=== PATIENT | male | born 1955 | race Two or more races ===

== ENCOUNTER 2023-02-15 15:15 | Emergency (ER) | payer OTHER, SELFPAY ==
--- NOTE | ~2023-02-15 | XR_ITS ---
EXAMINATION: XR FOOT, RIGHT CLINICAL INFORMATION: Open wound. COMPARISON: None available. TECHNIQUE: AP, lateral, and oblique views of the right foot. 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 There is soft tissue gas seen along the amputated end of right foot likely inflammation but no air-fluid levels seen to suspect any abscess. No bony erosive changes along the amputation sites to suspect osteomyelitis. The ankle mortise and subtalar joints are normal. There is a small to moderate size calcaneal spur. XR/XR foot RT min 3V IMPRESSION: 1. Soft tissue gas along the amputated end of right foot likely inflammation but no air-fluid level seen to suspect any abscess or or bony erosive changes to suspect osteomyelitis. 2. 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
[2023-02-15 15:25] VITALS: PULSE 105
--- NOTE | 2023-02-15 15:31 | ECG_ITS ---
Test Reason : MED CLEARANCE Blood Pressure : / mmHG Vent. Rate : 092 BPM Atrial Rate : 092 BPM P-R Int : 146 ms QRS Dur : 084 ms QT Int : 350 ms P-R-T Axes : 071 010 054 degrees QTc Int : 432 ms Normal sinus rhythm Normal ECG No previous ECGs available Referred By: Dianne Menjivar Electronically Signed By:ALEKS REHMAN MD
--- NOTE | 2023-02-15 15:31 | ED.GENADULT ---
HPI - General Adult General Chief complaint: Psychiatric Symptoms Stated complaint: ANXIETY, Time Seen by Provider: 02/15/23 15:24 Source: patient, EMS and senior architect Mode of arrival: EMS Limitations: language barrier History of Present Illness HPI narrative: Patient is a 67 year old assigned male at with a history of anxiety presenting to the emergency department today with increased anxiety. Patient states that he is feeling much more anxious and usually gets medications to help with it. Patient states that he has lost all of his toes from diabetes. Patient states that he has had a chronic wound on his right foot stub for 4 years. Patient denies any thoughts of hurting himself or hurting anyone else, dizziness, lightheadedness, abdominal pain, nausea, vomiting, fever, chills, blurry vision, double vision, loss of vision, chest pain, difficulty breathing, shortness of breath, back pain, night sweats, pain with urination, increased urinary frequency, increased urinary urgency, blood in his urine or stool, syncope or a near syncopal episode, recent trauma or falls, bowel incontinence, bladder incontinence, bowel retention, bladder retention, or any other complaints at this time. Onset (ago): day(s) Relieving factors: none Exacerbating factors: none Associated symptoms: denies other symptoms Treatments prior to arrival: none Related Data Home Medications Medication Instructions Recorded Confirmed aripiprazole 15 mg tablet 15 mg PO DAILY 02/15/23 02/15/23 atorvastatin 20 mg tablet 20 mg PO DAILY 02/15/23 02/15/23 dulaglutide 1.5 mg/0.5 mL 1.5 mg subcut QWEEK 02/15/23 02/15/23 subcutaneous pen injector (Trulicity) duloxetine 30 mg capsule,delayed 90 mg PO DAILY 02/15/23 02/15/23 release gabapentin 600 mg tablet 600 mg PO TID 02/15/23 02/15/23 levothyroxine 75 mcg tablet 75 mcg PO DAILY 02/15/23 02/15/23 lisinopril 10 mg tablet 10 mg PO DAILY 02/15/23 02/15/23 quetiapine 50 mg tablet 50 mg PO BEDTIME 02/15/23 02/15/23 tamsulosin 0.4 mg capsule 0.4 mg PO DAILY 02/15/23 02/15/23 trazodone 150 mg tablet 150 mg PO BEDTIME 02/15/23 02/15/23 cyanocobalamin (vitamin B-12) 1,000 mcg PO DAILY 02/16/23 02/16/23 1,000 mcg tablet (Vitamin B-12) insulin glargine 100 unit/mL (3 35 unit subcut BEDTIME 02/16/23 02/16/23 mL) subcutaneous pen (Lantus Solostar U-100 Insulin) Allergies Allergy/AdvReac Type Severity Reaction Status Date / Time No Known Allergies Allergy Verified 02/15/23 15:41 Review of Systems Constitutional: Constitutional: Reports no additional constitutional complaints, Denies chills, Denies fever(s) and Denies night sweats Eyes: Eyes: Reports no additional eye complaints, Denies blurry vision, Denies change in vision, Denies diplopia, Denies eye discharge, Denies loss of vision and Denies eye pain ENT: Denies dizziness Cardiovascular: Cardiovascular: Reports no additional cardiovascular complaints, Denies chest pain, Denies lightheadedness, Denies Loss of Consciousness and Denies dyspnea Respiratory: Respiratory: Reports no additional respiratory complaints and Denies dyspnea Gastrointestinal: Gastrointestinal: Reports no additional gastrointestinal complaints, Denies abdominal pain, Denies melena, Denies hematochezia, Denies change in bowel habits and Denies change in stool character Genitourinary: Genitourinary: Reports no additional male genitourinary complaints, Denies hematuria, Denies oliguria, Denies difficulty urinating, Denies dysuria, Denies urinary frequency, Denies urinary hesitancy, Denies urinary incontinence and Denies urinary urgency Musculoskeletal: Musculoskeletal: Reports no additional musculoskeletal complaints, Denies numbness and Denies tingling Comments: chronic wound to the right foot stub, both feet missing all toes Neurologic: Denies dizziness, Denies loss of vision, Denies numbness and Denies tingling Psychiatric: Psychiatric: Reports no additional psychiatric complaints, Reports anxiety, Denies homicidal ideation and Denies suicidal ideation Endocrine: Endocrine: Reports no additional endocrine complaints Hematologic/Lymphatic: Hematologic/Lymphatic: Reports no additional hematologic/lymphatic complaints Allergic/Immunologic: Allergic/Immunologic: Reports no additional allergic/immunologic complaints PMFSH Past Medical History Attestation statement: The following information was validated with the patient. Source: old records reviewed and nursing notes reviewed Social History Alcohol intake: current Smoked in Last 30 Days: Yes Use of substances other than those prescribed or required for medical reasons: Yes Advance Directives: No Advance Directives Information Provided: No Healthcare Proxy: No Guardian: No Physical Exam ED Vital Signs: Vital Signs - 24 hr 02/16/23 14:44 02/17/23 03:42 Temperature 97.9 F Pulse Rate 78 122 H Respiratory Rate 16 18 Blood Pressure 136/65 128/81 Pulse Oximetry 95 98 Oxygen Delivery Method Room Air Room Air BMI result Body Mass Index 28.9 Const General: cooperative, no acute distress, alert and awake Nutritional Appearance: well nourished Orientation/consciousness: patient oriented x3 Limitations: no limitations HENMT Head: Yes normal to inspection and Yes atraumatic Ears: hearing grossly normal bilaterally and external ears normal General nose exam: Normal external nose present, no nasal discharge noted and no epistaxis Face and sinus: Yes normal facial exam, No abrasion and No laceration Mouth: Normal oral and palatal mucosa present, no drooling and no muffled voice Eyes General: appearance normal, both eyes and all related structures Periorbital: periorbital findings normal Eyelids: Yes eyelids normal Conjunctivae: conjunctivae normal Pupils: Equal, round and reactive pupils present EOM: EOMs intact bilaterally Neck Neck: Yes normal visual inspection, Yes full ROM and Yes no lymphadenopathy Chest Chest palpation & inspection: normal inspection of the chest Resp Effort & Inspection: normal respiratory effort and able to speak in complete sentences GI Inspection: Yes normal to inspection Neuro General: patient oriented x3 and moves all extremities Cranial nerves: Yes Equal, round and reactive pupils present Cognition (Neuro): normal cognition Motor exam (neuro): 5/5 motor strength present throughout Sensory Exam: Normal double simultaneous stimulation for sensation Coordination: [id number] test normal Extrem Other: chronic wound to the right foot stub, all toes missing bilaterally secondary to diabetes General: Yes full ROM Psych Appearance: grossly normal Mental Status: mental status grossly normal Affect: Labile affect present and Animated affect present Attitude: cooperative Thought process: Circumstantial thought process present Course Reevaluation(s) Reevaluation #1: Review of serum labs, no leukocytosis or left shift. ESR 38 and CRP of 1.19. XR of the foot revealing:; XR/XR foot RT min 3V IMPRESSION: 1. Soft tissue gas along the amputated end of right foot likely inflammation but no air-fluid level seen to suspect any abscess or or bony erosive changes to suspect osteomyelitis. 2. 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 Upon examination wound bed has callus tingling any lesion tissue, no purulence. Wound has been present for the past 4 years by his account. He is afebrile. Lower suspicion for osteomyelitis at this time, reviewed this case with ED attending Dr. Posada who agrees. Will cover with doxycycline and keflex, he should have wound clinic follow-up. Placed in physician observation pending care team evaluation Reevaluation #2: Physician observation continued. VS stable, continue oral cephalexin and doxy. CARE team to dispo today most likely Reevaluation #3: Physician observation continued. CARE team follow up. No acute events overnight. Pending [facility] and CARE team input. Medications Administered Generic Name Dose Route Start Last Admin Trade Name Freq PRN Reason Stop Dose Admin Aripiprazole 15 mg 02/16/23 09:00 02/16/23 08:39 Aripiprazole 15 Mg Tablet PO 15 mg DAILY ROSS Administration Atorvastatin Calcium 20 mg 02/16/23 09:00 02/16/23 08:40 Atorvastatin Calcium 20 Mg Tablet PO 20 mg DAILY ROSS Administration Cephalexin HCl 500 mg 02/15/23 22:45 02/16/23 20:26 Cephalexin 500 Mg Capsule PO 02/22/23 22:44 500 mg QID ROSS Administration Cyanocobalamin 1,000 mcg 02/16/23 09:30 02/16/23 10:34 Cyanocobalamin (Vitamin B-12) 1,000 Mcg Tablet PO 1,000 mcg DAILY ROSS Administration Doxycycline Monohydrate 100 mg 02/15/23 22:45 02/16/23 20:27 Doxycycline Monohydrate 100 Mg Capsule PO 02/22/23 09:01 100 mg BID ROSS Administration Duloxetine HCl 90 mg 02/16/23 09:00 02/16/23 08:39 Duloxetine Hcl 30 Mg Capsule. PO 90 mg DAILY ROSS Administration Gabapentin 600 mg 02/16/23 09:00 02/16/23 20:26 Gabapentin 600 Mg Tablet PO 600 mg TID ROSS Administration Insulin Glargine 35 unit 02/16/23 21:00 02/16/23 20:25 Insulin Glargine,Hum.Rec.Anlog 100 Unit/Ml 10 Ml Vial SUBCUT 35 unit BEDTIME ROSS Administration Levothyroxine Sodium 75 mcg 02/16/23 09:00 02/17/23 05:25 Levothyroxine Sodium 75 Mcg Tablet PO 75 mcg DAILY@0600 ROSS Administration Lisinopril 10 mg 02/16/23 09:00 02/16/23 08:39 Lisinopril 10 Mg Tablet PO 10 mg DAILY ROSS Administration Protocol Quetiapine Fumarate 50 mg 02/16/23 21:00 02/16/23 20:26 Quetiapine Fumarate 50 Mg Tablet PO 50 mg BEDTIME ROSS Administration Tamsulosin HCl 0.4 mg 02/16/23 09:00 02/16/23 08:40 Tamsulosin Hcl 0.4 Mg Capsule PO 0.4 mg DAILY ROSS Administration Trazodone HCl 150 mg 02/16/23 21:00 02/16/23 20:25 Trazodone Hcl 50 Mg Tablet PO 150 mg BEDTIME ROSS Administration Discontinued Medications Generic Name Dose Route Start Last Admin Trade Name Freq PRN Reason Stop Dose Admin Hydroxyzine HCl 50 mg 02/16/23 08:09 02/16/23 08:17 Hydroxyzine Hcl 50 Mg Tablet PO 02/16/23 08:10 50 mg ONCE ONE Administration Lorazepam 2 mg 02/15/23 15:31 02/15/23 15:41 Lorazepam 1 Mg Tablet PO 02/15/23 15:32 2 mg ONCE ONE Administration Medical Decision Making Medical Decision Making MDM Narrative: Patient is a 67 year old assigned male at with a history of diabetes and anxiety presenting to the emergency department today with increased anxiety. Patient's physical exam was as noted in the physical exam portion of this note. Labs ordered. XR of the right foot ordered. Ativan ordered. Patient's disposition will be determined by his work up and CARE team evaluation. Patient signed out to evening FAVIOLA. Differential Diagnosis Differential Diagnoses: The differential diagnosis associated with the presentation includes Cellulitis Anxiety Admission/Observation Consideration of admission/observation: Escalation of care including admission/observation considered Admission decision will be made after work up is complete and patient is evaluated by the CARE team. Lab Data 02/15/23 15:56 02/15/23 15:56 Labs: Lab Results 02/15/23 02/15/23 02/15/23 Range/Units 15:55 15:56 19:06 WBC 5.9 (4.8-10.8) X10*3/uL RBC 4.15 L (4.60-5.80) X10*6/uL Hgb 10.5 L (14.0-18.0) g/dl Hct 33.8 L (42.0-52.0) % MCV 81.4 (80.0-98.0) fL MCH 25.3 L (27.0-33.0) pg MCHC 31.1 (31.0-36.0) g/dl RDW 15.9 (11.0-16.0) % Plt Count 300 (160-400) X10*3/uL MPV 8.8 L (9.4-12.4) fL Immature Gran % (Auto) 0.3 (0.0-0.4) % Neut % (Auto) 62.6 (45-73) % Lymph % (Auto) 23.6 (20-40) % [place] % (Auto) 9.0 (2-11) % Eos % (Auto) 3.7 (0-4) % Baso % (Auto) 0.8 (0-2) % Lymph # (Auto) 1.4 (1.2-4.9) X10*3/uL [place] # (Auto) 0.5 (0.1-1.2) X10*3/uL Eos # (Auto) 0.2 (0.0-0.4) X10*3/uL Baso # (Auto) 0.1 (0.0-0.2) X10*3/uL Abs Immat Gran (auto) 0.02 (0.00-0.03) X10*3/uL Absolute Neuts (auto) 3.7 (2.0-8.3) x10*3/uL Absolute Nucleated RBC 0.000 (0.0-0.012) X10*3/uL Nucleated RBC % (auto) 0.0 (0.0-0.2) /100WBC ESR 38 H (0-15) MM/HR Sodium 141 (135-145) mmol/L Potassium 4.4 (3.3-5.1) mmol/L Chloride 105 (96-108) mmol/L Carbon Dioxide 28 (22-29) mmol/L Anion Gap 12 (12-20) BUN 12 (9-16) mg/dL Creatinine 1.29 (0.5-1.4) mg/dL Estim Creat Clear Calc 59.3 Estimated GFR 56 POC Glucose 196 H (60-115) mg/dL Random Glucose 193 H (60-115) mg/dL Calcium 9.6 (8.4-10.2) mg/dL Total Bilirubin 0.2 (0.0-1.0) mg/dL AST 20 (5-37) U/L ALT 17 (0-40) U/L Alkaline Phosphatase 135 H (39-117) U/L C-Reactive Protein 1.19 H (< or = 0.50) mg/dL Total Protein 7.1 (6.5-8.0) g/dL Albumin 3.6 (3.5-5.0) g/dL Urine Color Urine Appearance Urine pH (5.0-9.0) Ur Specific [place] (1.005-1.025) Urine Protein (Neg-Trace) mg/dL Urine Glucose (UA) (Negative) mg/dL Urine Ketones (Negative) mg/dL Urine Blood (Negative) Urine Nitrite (Negative) Ur Leukocyte Esterase (Negative) Salicylates < 5.0 L (15-30) mg/dL Urine Opiates Screen (Not Detect) Urine Fentanyl Screen (Not Detect) Acetaminophen < 3 (<30) mcg/mL Ur Barbiturates Screen (Not Detect) Ur Phencyclidine Scrn (Not Detect) Ur Amphetamines Screen (Not Detect) U Benzodiazepines Scrn (Not Detect) Urine Cocaine Screen (Not Detect) U Marijuana (THC) Screen (Not Detect) Ethyl Alcohol < 10 mg/dL COVID-19 (JILL) Negative (Negative) COVID-19 Clin Com See Note 02/16/23 02/16/23 Range/Units 03:00 19:59 WBC (4.8-10.8) X10*3/uL RBC (4.60-5.80) X10*6/uL Hgb (14.0-18.0) g/dl Hct (42.0-52.0) % MCV (80.0-98.0) fL MCH (27.0-33.0) pg MCHC (31.0-36.0) g/dl RDW (11.0-16.0) % Plt Count (160-400) X10*3/uL MPV (9.4-12.4) fL Immature Gran % (Auto) (0.0-0.4) % Neut % (Auto) (45-73) % Lymph % (Auto) (20-40) % [place] % (Auto) (2-11) % Eos % (Auto) (0-4) % Baso % (Auto) (0-2) % Lymph # (Auto) (1.2-4.9) X10*3/uL [place] # (Auto) (0.1-1.2) X10*3/uL Eos # (Auto) (0.0-0.4) X10*3/uL Baso # (Auto) (0.0-0.2) X10*3/uL Abs Immat Gran (auto) (0.00-0.03) X10*3/uL Absolute Neuts (auto) (2.0-8.3) x10*3/uL Absolute Nucleated RBC (0.0-0.012) X10*3/uL Nucleated RBC % (auto) (0.0-0.2) /100WBC ESR (0-15) MM/HR Sodium (135-145) mmol/L Potassium (3.3-5.1) mmol/L Chloride (96-108) mmol/L Carbon Dioxide (22-29) mmol/L Anion Gap (12-20) BUN (9-16) mg/dL Creatinine (0.5-1.4) mg/dL Estim Creat Clear Calc Estimated GFR POC Glucose 209 H (60-115) mg/dL Random Glucose (60-115) mg/dL Calcium (8.4-10.2) mg/dL Total Bilirubin (0.0-1.0) mg/dL AST (5-37) U/L ALT (0-40) U/L Alkaline Phosphatase (39-117) U/L C-Reactive Protein (< or = 0.50) mg/dL Total Protein (6.5-8.0) g/dL Albumin (3.5-5.0) g/dL Urine Color Yellow Urine Appearance Clear Urine pH 6.5 (5.0-9.0) Ur Specific [place] 1.015 (1.005-1.025) Urine Protein Negative (Neg-Trace) mg/dL Urine Glucose (UA) Negative (Negative) mg/dL Urine Ketones Negative (Negative) mg/dL Urine Blood Negative (Negative) Urine Nitrite Negative (Negative) Ur Leukocyte Esterase Negative (Negative) Salicylates (15-30) mg/dL Urine Opiates Screen Not Detected (Not Detect) Urine Fentanyl Screen Not Detected (Not Detect) Acetaminophen (<30) mcg/mL Ur Barbiturates Screen Not Detected (Not Detect) Ur Phencyclidine Scrn Not Detected (Not Detect) Ur Amphetamines Screen Not Detected (Not Detect) U Benzodiazepines Scrn Not Detected (Not Detect) Urine Cocaine Screen POSITIVE H (Not Detect) U Marijuana (THC) Screen Not Detected (Not Detect) Ethyl Alcohol mg/dL COVID-19 (JILL) (Negative) COVID-19 Clin Com Independent Historian Clinical information obtained from an independent historian. History obtained from or confirmed by: EMS (EMS provided additional history and confirmed the history provided by the patient.) Discharge Plan Discharge Clinical Impression: Anxiety, Chronic wound Patient Disposition: Still a Patient Prescriptions: No Action gabapentin 600 mg tablet 600 mg PO TID atorvastatin 20 mg tablet 20 mg PO DAILY levothyroxine 75 mcg tablet 75 mcg PO DAILY tamsulosin 0.4 mg capsule 0.4 mg PO DAILY trazodone 150 mg tablet 150 mg PO BEDTIME lisinopril 10 mg tablet 10 mg PO DAILY aripiprazole 15 mg tablet 15 mg PO DAILY duloxetine 30 mg capsule,delayed release(DR/EC) 90 mg PO DAILY quetiapine 50 mg tablet 50 mg PO BEDTIME Trulicity 1.5 mg/0.5 mL pen injector 1.5 mg subcut QWEEK cyanocobalamin (vitamin B-12) [Vitamin B-12] 1,000 mcg tablet 1,000 mcg PO DAILY insulin glargine [Lantus Solostar U-100 Insulin] 100 unit/mL (3 mL) insulin pen 35 unit subcut BEDTIME Interventions: [place]-Suicide Risk Severity Scale Last Done: 02/17/23 00:09
[2023-02-15 15:36] VITALS: BMI 28.9
[2023-02-15] MEDS: LORazepam 1 MG TABLET 2 MG PO (15:41)
[2023-02-15 15:42] VITALS: BP 159/90; PULSE 102; RESP 16; TEMP 36.6; O2SAT 97
--- NOTE | 2023-02-15 16:00 | MHC.CARE ---
Wafer Substrate Tester called and spoke with Ghazala at [facility] [phone] to inquire on patient status. Ghazala reports he was admitted to [facility] on 02/14/23 and was sent out to [facility] D/T unmanageable panic attack and looking like he 'was crawling out of his skin.' It was noted to be sudden onset of events,question of his not wanting to be there vs.medical vs. missing medications. Ghazala states that patient was missing psychotropic medications and they did not have any PRN's to administer. She also states that patient is a [facility] client and unable to return to current residence due to construction at this time.
[2023-02-15 16:02] LABS: MANUAL DIFF FLAG NO
[2023-02-15 16:03] LABS: Basophils Absolute Auto 0.1 X10*3/uL (0.0-0.2); Basophils Percent Auto 0.8 % (0-2); Eosinophils Absolute Auto 0.2 X10*3/uL (0.0-0.4); Eosinophils Percent Auto 3.7 % (0-4); Hematocrit 33.8 % (42.0-52.0); Hemoglobin 10.5 g/dl (14.0-18.0); Imm Gran Abs Auto 0.02 X10*3/uL (0.00-0.03); Imm Gran Pct Auto 0.3 % (0.0-0.4); Lymphocytes Absolute Auto 1.4 X10*3/uL (1.2-4.9); Lymphocytes Percent Auto 23.6 % (20-40); Mean Corpuscular HGB Conc 31.1 g/dl (31.0-36.0); Mean Corpuscular Hemoglobin 25.3 pg (27.0-33.0); Mean Corpuscular Volume 81.4 fL (80.0-98.0); Mean Platelet Volume 8.8 fL (9.4-12.4); Monocytes Absolute Auto 0.5 X10*3/uL (0.1-1.2); Neutrophils Absolute Auto 3.7 x10*3/uL (2.0-8.3); Neutrophils Percent Auto 62.6 % (45-73); Platelet Count 300 X10*3/uL (160-400); Red Blood Count 4.15 X10*6/uL (4.60-5.80); Red Cell Distribution Width 15.9 % (11.0-16.0); White Blood Count 5.9 X10*3/uL (4.8-10.8)
--- NOTE | 2023-02-15 16:08 | PC.NURSE ---
Addendum entered by Lluvia Chu 02/15/23 16:11: this incident ocurred at 1550. Original Note: pt in front of tech/rn at bedside- pt placed hands around neck stating he wanted to /kill self- 1:1 is at bedside with pt. chargeback analyst made aware. ligatures removed from room. security JR and colleagues came to bedside for belongings. changed into crisis clothes. vs taken. given ativan per PA emilie order.
--- NOTE | 2023-02-15 16:09 | MHC.EDTECH ---
This pct along with isac (RN) were in patients room getting him changed over and going through his belongings when patient placed his own hands around his throat making the statement he wanted to kill himself and that he cant stand the anxiety no longer, security button was pressed due to the fact I and isac could not pry hands off his neck, we were able to susscessfully get his hands away from his throat as security arrived to room.
--- NOTE | 2023-02-15 16:11 | PC.NURSE ---
pt is now asleep
[2023-02-15 16:23] LABS: Alanine Aminotransferase 17 U/L (0-40); Albumin Level 3.6 g/dL (3.5-5.0); Alkaline Phosphatase 135 U/L (39-117); Anion Gap 12 (12-20); Aspartate Amino Transferase 20 U/L (5-37); Bilirubin Total 0.2 mg/dL (0.0-1.0); Blood Urea Nitrogen 12 mg/dL (9-16); C Reactive Protein 1.19 mg/dL (< or = 0.50); Calcium 9.6 mg/dL (8.4-10.2); Carbon Dioxide 28 mmol/L (22-29); Chloride 105 mmol/L (96-108); Creatinine Clr Calc Pharmacy 59.3; Estimated Glomerular Filt Rate 56; Ethanol < 10 mg/dL; Glucose Random 193 mg/dL (60-115); Potassium 4.4 mmol/L (3.3-5.1); Sodium 141 mmol/L (135-145); Total Protein 7.1 g/dL (6.5-8.0)
[2023-02-15 16:24] LABS: Acetaminophen LAB < 3 mcg/mL (<30); COVID-19 Test Negative (Negative); IDNOW Serial# 08D9AD1C; Salicylate < 5.0 mg/dL (15-30)
[2023-02-15 16:38] LABS: Erythrocyte Sedimentation Rate 38 MM/HR (0-15)
--- NOTE | 2023-02-15 16:49 | MHC.CARE ---
T/w spoke with ACCS clinician Arline from [facility]. She states that pt resides in [facility] housing and they went to inspect his apartment and determined he needed to leave so they could repair his broken window and door. They were able to secured a bed for him at [facility] so that they could conduct these repairs and once they were finished he was able to return. She states due to his complex medical issues his apartment is not suitable to live in until these repairs are fixed. She states that he has complex medical issues has had multiple surgeries, womb left food etc. She reports that pt had a recent late medication change yesterday with his prescriber however due to the time and holiday he was unable to get his new medications as of yet and tomorrow they were going to pick it up. [facility] shared that they did not have any PRNS to give him on the unit. Arline states that once we assess him, to give her a call with disposition. If pt is cleared psychiatrically [facility] and ACCS will need to talk to him to see if he wants to return to [facility] , according to Arline he is able to return if cleared. According to Arline, pt did not want to be at respite and could be the reason why his anxiety was heightened, therefore if he wishes to not return they will need to arrange an alternative plan.
--- NOTE | 2023-02-15 17:14 | MHC.CARE ---
Arline ACCS clinician from [place] [phone]
--- NOTE | 2023-02-15 17:45 | PC.NURSE ---
sitter remains at bedside. calm. sleeping. no distress- breathing well. +CMS. quiet environment. safety maintained. 1:1
[2023-02-15 17:46] VITALS: RESP 16
[2023-02-15 18:59] VITALS: BP 145/75; PULSE 94; RESP 16; O2SAT 95
--- NOTE | 2023-02-15 18:59 | PC.NURSE ---
pt was sleeping- awake- no distress. 1:1 at bedside
[2023-02-15 19:10] LABS: Glucose, Whole Blood 196 mg/dL (60-115)
--- NOTE | 2023-02-15 19:15 | PC.NURSE ---
pt given crackers/sandwich/fluids as pt states he needs fluids prior to being able to void for sample.
[2023-02-15 20:00] VITALS: RESP 18
--- NOTE | 2023-02-15 20:45 | PC.NURSE ---
pt sleeping, 1:1 at bedside, no distress.
[2023-02-15] MEDS: Doxycycline Monohydrate 100 MG CAPSULE PO (23:24)
[2023-02-15] MEDS: cephALEXin 500 MG CAPSULE PO (23:24)
[2023-02-15 23:40] VITALS: BP 126/67; PULSE 79; RESP 16; O2SAT 92
[2023-02-16 03:08] LABS: Appearance Urine Clear; Color Urine Yellow; Glucose Urine UA Negative (Negative); Leukocyte Esterase Urine Negative (Negative); Nitrite Urine Negative (Negative); PH 6.5 (5.0-9.0); Specific Gravity - Urine 1.015 (1.005-1.025); Urine Blood Negative (Negative); Urine Ketones Negative (Negative); Urine Protein Negative (Neg-Trace)
[2023-02-16 03:18] LABS: Amphetamine Screen Urine Not Detected (Not Detect); Barbiturates, Urine Not Detected (Not Detect); Benzodiazepines Screen Urine Not Detected (Not Detect); Cannabinoid Screen Urine Not Detected (Not Detect); Cocaine Screen Urine POSITIVE (Not Detect); Fentanyl, urine Not Detected (Not Detect); Opiate Screen Urine Not Detected (Not Detect); Phencyclidine Screen Urine Not Detected (Not Detect)
--- NOTE | 2023-02-16 04:00 | PC.NURSE ---
After review with care team and this RN, pt denies SI, history of attempts and and current feelings of self harm. 1:1 sitter released from service with pt. pt advising staff he feels safe i ncurrent environment in ER, and will speak with [facility] in am for posible temporary placement.
[2023-02-16 06:06] VITALS: BP 136/62; PULSE 81; RESP 16; O2SAT 97
--- NOTE | 2023-02-16 07:05 | PC.NURSE ---
patient papears to be asleep, respirations equal and unlabored, patient shows no sign of distress
[2023-02-16] MEDS: hydrOXYzine HCL 50 MG TABLET PO (08:17)
[2023-02-16] MEDS: cephALEXin 500 MG CAPSULE PO ×4 (08:17→20:26)
[2023-02-16] MEDS: Doxycycline Monohydrate 100 MG CAPSULE PO ×2 (08:18→20:27)
[2023-02-16] MEDS: DULoxetine HCl 30 MG CAPSULE.DR 90 MG PO (08:39)
[2023-02-16] MEDS: lisinopriL 10 MG TABLET PO (08:39)
[2023-02-16] MEDS: ARIPiprazole 15 MG TABLET PO (08:39)
[2023-02-16] MEDS: Atorvastatin Calcium 20 MG TABLET PO (08:40)
[2023-02-16] MEDS: Gabapentin 600 MG TABLET PO ×3 (08:40→20:26)
[2023-02-16] MEDS: Levothyroxine Sodium 75 MCG TABLET PO (08:40)
[2023-02-16] MEDS: Tamsulosin HCL 0.4 MG CAPSULE PO (08:40)
--- NOTE | 2023-02-16 09:14 | PHA.MEDREC ---
Pharmacy Consult ? Medication Reconciliation Pharmacy has completed the medication reconciliation. Kristine COTA reviewed by pharmacy. Lantus was missing so medication was added. Patient states he takes med twice a day, but refill history, SIG, and discussion with outpatient pharmacy support once daily administration. Will contact provider to continue Brenton
[2023-02-16] MEDS: Cyanocobalamin (Vitamin B-12) 1,000 MCG TABLET 1000 MCG PO (10:34)
[2023-02-16 14:44] VITALS: BP 136/65; PULSE 78; RESP 16; TEMP 36.6; O2SAT 95
--- NOTE | 2023-02-16 18:58 | PC.NURSE ---
patient appears to remain asleep at present respirations are even and unlabored patient seems in no distress
[2023-02-16 20:18] LABS: Glucose, Whole Blood 209 mg/dL (60-115)
[2023-02-16] MEDS: traZODone HCL 50 MG TABLET 150 MG PO (20:25)
[2023-02-16] MEDS: Insulin Glargine,Hum.rec.anlog 100 UNIT/ML 10 ML VIAL 35 UNIT SUBCUT (20:25)
[2023-02-16] MEDS: QUEtiapine Fumarate 50 MG TABLET PO (20:26)
[2023-02-17 03:42] VITALS: BP 128/81; PULSE 122; RESP 18; O2SAT 98
--- NOTE | 2023-02-17 03:44 | PC.NURSE ---
pt assessed reported pain the right foot pain with ambulation, pt has a plantar open wound, dry, no drainage observed, cleaned with NS and bandage applied to right foot.
[2023-02-17] MEDS: Levothyroxine Sodium 75 MCG TABLET PO (05:25)
[2023-02-17 07:31] VITALS: RESP 18
[2023-02-17] MEDS: DULoxetine HCl 30 MG CAPSULE.DR 90 MG PO (09:49)
[2023-02-17] MEDS: ARIPiprazole 15 MG TABLET PO (09:49)
[2023-02-17] MEDS: lisinopriL 10 MG TABLET PO (09:50)
[2023-02-17] MEDS: Tamsulosin HCL 0.4 MG CAPSULE PO (09:50)
[2023-02-17] MEDS: Cyanocobalamin (Vitamin B-12) 1,000 MCG TABLET 1000 MCG PO (09:50)
[2023-02-17] MEDS: Atorvastatin Calcium 20 MG TABLET PO (09:50)
[2023-02-17] MEDS: cephALEXin 500 MG CAPSULE PO ×4 (09:50→20:18)
[2023-02-17] MEDS: Doxycycline Monohydrate 100 MG CAPSULE PO ×2 (09:50→20:18)
[2023-02-17] MEDS: Gabapentin 600 MG TABLET PO ×3 (09:50→20:19)
[2023-02-17 10:09] VITALS: RESP 18
[2023-02-17 12:37] LABS: Glucose, Whole Blood 114 mg/dL (60-115)
[2023-02-17 14:39] VITALS: RESP 16
--- NOTE | 2023-02-17 18:03 | PC.NURSE ---
patient is alert and able to make needs known. Patient is able to ambulate freely around unit. Patient has a good appetite and ate 100% of breakfast and lunch. Patients POC was 114 at lunch time. Patient denies SI/HI. Patient is resting and watching TV in his room at this time.
--- NOTE | 2023-02-17 19:17 | PC.NURSE ---
patient appears to remain at rest at present respirations are even and unlabored patient appears in no distress.
[2023-02-17] MEDS: QUEtiapine Fumarate 50 MG TABLET PO (20:19)
[2023-02-17] MEDS: Insulin Glargine,Hum.rec.anlog 100 UNIT/ML 10 ML VIAL 35 UNIT SUBCUT (20:19)
[2023-02-17] MEDS: traZODone HCL 50 MG TABLET 150 MG PO (20:19)
--- NOTE | 2023-02-17 20:38 | PC.NURSE ---
patient reported to t/w he thought odor was coming from plantar non healing wound (which we are treating w abx) washed with ns, covered w bulkee dressing.
[2023-02-18 01:27] VITALS: BP 130/64; PULSE 109; RESP 18; TEMP 36.3; O2SAT 97
[2023-02-18] MEDS: Levothyroxine Sodium 75 MCG TABLET PO (05:26)
[2023-02-18] MEDS: Tamsulosin HCL 0.4 MG CAPSULE PO (09:40)
[2023-02-18] MEDS: Cyanocobalamin (Vitamin B-12) 1,000 MCG TABLET 1000 MCG PO (09:40)
[2023-02-18] MEDS: cephALEXin 500 MG CAPSULE PO ×4 (09:41→21:24)
[2023-02-18] MEDS: Atorvastatin Calcium 20 MG TABLET PO (09:41)
[2023-02-18] MEDS: lisinopriL 10 MG TABLET PO (09:41)
[2023-02-18] MEDS: Doxycycline Monohydrate 100 MG CAPSULE PO ×2 (09:41→21:24)
[2023-02-18] MEDS: ARIPiprazole 15 MG TABLET PO (09:41)
[2023-02-18] MEDS: DULoxetine HCl 30 MG CAPSULE.DR 90 MG PO (09:41)
[2023-02-18] MEDS: Gabapentin 600 MG TABLET PO ×3 (09:41→21:24)
[2023-02-18 09:47] VITALS: RESP 18
[2023-02-18 14:10] VITALS: RESP 16
--- NOTE | 2023-02-18 17:23 | PC.NURSE ---
patient is alert and able to make needs known. Patient has a good appetite and ate 100% of breakfast and lunch. Patient has a wound on his right foot that was cleansed and a band-applied. No SI/HI. Patient is able to ambulate around unit. Patient watching tv in his room at this time.
--- NOTE | 2023-02-18 19:57 | PC.NURSE ---
Ambulatory with steady gait to the restroom.
[2023-02-18] MEDS: Insulin Glargine,Hum.rec.anlog 100 UNIT/ML 10 ML VIAL 35 UNIT SUBCUT (21:23)
[2023-02-18] MEDS: QUEtiapine Fumarate 50 MG TABLET PO (21:24)
[2023-02-18] MEDS: traZODone HCL 50 MG TABLET 150 MG PO (21:24)
[2023-02-18 21:33] VITALS: BP 117/73; PULSE 82; RESP 14; TEMP 36.5; O2SAT 98
--- NOTE | 2023-02-19 04:25 | PC.NURSE ---
Pt resting/sleeping at the bedside. Ambulatory with steady gait to the restroom. No apparent distress noted. Monitoring is ongoing.
[2023-02-19] MEDS: Levothyroxine Sodium 75 MCG TABLET PO (05:28)
[2023-02-19 05:30] VITALS: BP 129/70; PULSE 92; RESP 17; TEMP 36.1; O2SAT 99
--- NOTE | 2023-02-19 05:44 | PC.NURSE ---
Dressing applied to right foot ulcer. Pt tolerated well.
[2023-02-19] MEDS: DULoxetine HCl 30 MG CAPSULE.DR 90 MG PO (07:51)
[2023-02-19] MEDS: lisinopriL 10 MG TABLET PO (07:51)
[2023-02-19] MEDS: Doxycycline Monohydrate 100 MG CAPSULE PO ×2 (07:51→21:45)
[2023-02-19] MEDS: Atorvastatin Calcium 20 MG TABLET PO (07:52)
[2023-02-19] MEDS: Gabapentin 600 MG TABLET PO ×3 (07:52→21:45)
[2023-02-19] MEDS: Cyanocobalamin (Vitamin B-12) 1,000 MCG TABLET 1000 MCG PO (07:52)
[2023-02-19] MEDS: cephALEXin 500 MG CAPSULE PO ×4 (07:53→21:45)
[2023-02-19] MEDS: Tamsulosin HCL 0.4 MG CAPSULE PO (07:53)
[2023-02-19] MEDS: ARIPiprazole 15 MG TABLET PO (07:53)
--- NOTE | 2023-02-19 08:00 | MHC.CARE ---
CARE Team called [facility] respite, Pt has been offically closed out and has to be referred by DM worker. CARE Team spoke with Pts DM worker Arline, she is aware Pt is no longer found [facility] and working on placement for Pt.
--- NOTE | 2023-02-19 11:09 | MHC.CARE ---
Addendum entered by Dejah Patel, [facility] 02/19/23 13:48: Arline number is [phone] Original Note: CARE Team received a call from Arline, Pt will need to go to [facility] prior to transitioning to [facility] respite bed. CARE Team to complete referral to [facility].
--- NOTE | 2023-02-19 12:36 | MHC.CARE ---
CARE Team spoke with Kala at [facility], e-fax was not able to reviewed and referral was emailed.
--- NOTE | 2023-02-19 13:07 | PC.NURSE ---
this rn medicated pt per may.
--- NOTE | 2023-02-19 13:32 | MHC.CARE ---
CARE Team spoke with Kala from [facility] - nursing would like to review Pts ablity for wound care. RN provided information to contact nursing at [facility] [phone].
--- NOTE | 2023-02-19 13:50 | MHC.CARE ---
CARE Team spoke with Pts [facility] worker, Pt has been going to the wound clinic 1x weekly and [facility] comes 3x weekly. Arline is going to contact [facility] to see if they are able to come to [facility].
--- NOTE | 2023-02-19 14:11 | PC.NURSE ---
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 we will need to send him with bandages. RN to RN report called to [phone] and they cannot touch the wound
--- NOTE | 2023-02-19 16:14 | MHC.CARE ---
Call back from Yue from [facility] ([phone]) regarding patient going to [facility], she reported that [facility] cannot provide that type of service to a patient in that level of care. She inquired if STR is being considered, the team will continue to consider how to best support patient. ED provider ordered PT and CM consultations.
--- NOTE | 2023-02-19 19:31 | MHC.CARE ---
Patient was placed in [facility] respite due to his apartment being repaired.? [facility], the patient requires daily wound care to his foot/toes. He is too medically acute for admission. ?[facility] notified of patients' plan to be referred to case management for rehab placement. Patient is aware and agreeable to plan.
[2023-02-19 21:28] VITALS: BP 139/60; PULSE 77; RESP 18; TEMP 37.3; O2SAT 97
[2023-02-19] MEDS: traZODone HCL 50 MG TABLET 150 MG PO (21:45)
[2023-02-19] MEDS: Insulin Glargine,Hum.rec.anlog 100 UNIT/ML 10 ML VIAL 35 UNIT SUBCUT (21:45)
[2023-02-19] MEDS: QUEtiapine Fumarate 50 MG TABLET PO (21:45)
[2023-02-20] MEDS: Levothyroxine Sodium 75 MCG TABLET PO (05:56)
[2023-02-20 06:01] VITALS: BP 108/66; PULSE 107; RESP 17; TEMP 36.5; O2SAT 96
--- NOTE | 2023-02-20 06:45 | PC.NURSE ---
PT sleeping throughout shift. Up periodically to use bathroom. PT denies SI and HI. Notes that he believes the medications he is on currently is helping with his anxiety. PT medicated as per MAY. Dressing applied to right foot ulcer. PT tolerated with no issue. Safety precautions in place. 15 minutes checks continue. Plan of care ongoing
[2023-02-20 07:12] VITALS: BP 108/66; PULSE 107; O2SAT 96
--- NOTE | 2023-02-20 07:41 | PC.NURSE ---
Initial contact with pt. pt ambulating around unit, ate breakfast. PT at bedside for evaluation.
[2023-02-20] MEDS: DULoxetine HCl 30 MG CAPSULE.DR 90 MG PO (08:18)
[2023-02-20] MEDS: Tamsulosin HCL 0.4 MG CAPSULE PO (08:18)
[2023-02-20] MEDS: lisinopriL 10 MG TABLET PO (08:18)
[2023-02-20] MEDS: Cyanocobalamin (Vitamin B-12) 1,000 MCG TABLET 1000 MCG PO (08:19)
[2023-02-20] MEDS: ARIPiprazole 15 MG TABLET PO (08:19)
[2023-02-20] MEDS: cephALEXin 500 MG CAPSULE PO ×4 (08:19→20:34)
[2023-02-20] MEDS: Atorvastatin Calcium 20 MG TABLET PO (08:19)
[2023-02-20] MEDS: Gabapentin 600 MG TABLET PO ×3 (08:19→20:33)
[2023-02-20] MEDS: Doxycycline Monohydrate 100 MG CAPSULE PO ×2 (08:19→20:32)
--- NOTE | 2023-02-20 10:17 | MHC.CM.ED ---
Addendum entered by Rafaela Monet 02/21/23 08:21: Patient resides in a [facility] longterm at baseline. He was transferred to a [facility] respite house on 02/14 because there is a window and carpeting that needs to be repaired in his room. He was at respite for less than 24 hours before coming to the ER due to anxiety. Original Note: Patient is currently in #6. Originally came in on 02/15 due to anxiety. Patient was cleared by Crisis. Care Team was trying to find voluntary respite for the patient. However, patient has a right foot wound that needs daily dressing changes. Patient is not able to complete these dressing changes himself. Patient states there is construction going on in his apartment building which would make it impossible for a VNA to come to his home to assist with dressing changes. At this time, it clearly unsafe for the patient to return home due to the risk of wound infection. Short term rehab placement will need to be found in order to safely manage wound dressings. Referral broadcasted in [facility]. [facility] a bed. Met with patient and roof cement and paint maker helper. Patient is agreeable to [facility]. Facility is in the process of obtaining insurance auth. Continue to monitor for d/c needs.
--- NOTE | 2023-02-20 14:58 | HO.WOUND ---
Wound Consult: Initial 67 yr old male in [facility] ED as of ?02/15/23 waiting for placement per direct care nurse - See progress notes and H&P for detailed history. Pt reports he has had the plantar wound for over 4 years. he reports he has treated in the past with outpt wound clinic - I am not able to understand why he discontinued this treatment but he denies healing. He reports the pt was given an off loading shoe to aid in healing but reports he did not like it and was not able to stay off his foot. Right Plantar Foot Nonhealing Diabetic Foot Wound Measurements: two open lesions medial 1.5cm x 1cm x 0.2cm and midline wound 2.2cm x 0.3cm x 0.2cm with intact callus bridges in place Wound Bed: medial wound with adherent pale fibrinous slough midline wound with pale pink moist tissue Drainage / Odor: No dressing in place - no drainage observed on socks - no odor noted Edges: ? significantly dry callused with hard firm edges Violette wound: ? Intact thick callused tissue No Induration, No Fluctuance, No Erythema Pain: Mild tenderness reported Goals of Treatment: Alginate for moisture management with antimicrobial properties - consider Surgery consult for wound edge debridement - Pt should follow wiht out patient wound clinic for continued treatment in an effort to heal Recommendations: 1. Turn and Reposition every 2 hours and as needed for patient comfort. 2. Off Load all bony prominences with use of pillows, wedges and heel boots. 3. Provide adequate and supplemental nutrition. 4. Maintain blood glucose levels per Providers orders. 5. Right Plantar Foot - Pt should limit ambulation and direct pressure to wound as this will impact healing. Cleanse with NS, pat dry. Apply Durafiber AG / Alginate to wound bed. cover with dry ABD Pads, followed by gauze wrap and or tape if wrap is unit contraindicated. Change dressing daily while inpatient and every other day at time of discharge. Follow up with wound clinic for continued care and treatment. Re-consult wound care Nurse for wound deterioration or wound changes.
--- NOTE | 2023-02-20 19:25 | PC.NURSE ---
received report from prior nurse and saw client ambulate to restroom, patient looks content and relaxed, smiling. patient appears in no distress
[2023-02-20] MEDS: Insulin Glargine,Hum.rec.anlog 100 UNIT/ML 10 ML VIAL 35 UNIT SUBCUT (20:32)
[2023-02-20] MEDS: traZODone HCL 50 MG TABLET 150 MG PO (20:32)
[2023-02-20] MEDS: QUEtiapine Fumarate 50 MG TABLET PO (20:34)
[2023-02-21] MEDS: Levothyroxine Sodium 75 MCG TABLET PO (05:37)
[2023-02-21] MEDS: cephALEXin 500 MG CAPSULE PO ×2 (08:22→14:49)
[2023-02-21] MEDS: Cyanocobalamin (Vitamin B-12) 1,000 MCG TABLET 1000 MCG PO (08:22)
[2023-02-21] MEDS: Gabapentin 600 MG TABLET PO ×2 (08:23→14:49)
[2023-02-21] MEDS: ARIPiprazole 15 MG TABLET PO (08:23)
[2023-02-21] MEDS: Atorvastatin Calcium 20 MG TABLET PO (08:23)
[2023-02-21] MEDS: DULoxetine HCl 30 MG CAPSULE.DR 90 MG PO (08:23)
[2023-02-21] MEDS: lisinopriL 10 MG TABLET PO (08:23)
[2023-02-21] MEDS: Tamsulosin HCL 0.4 MG CAPSULE PO (08:23)
[2023-02-21] MEDS: Doxycycline Monohydrate 100 MG CAPSULE PO (08:23)
--- NOTE | 2023-02-21 09:26 | MHC.CM.ED ---
Addendum entered by Rafaela Monet 02/21/23 13:15: Level 2 and ins auth obtained. Patient can leave at 4pm. Ronald VILLARREAL booked. Med [facility] with chart. Patient, Santos RN and Dianne GUIDRY aware. RN to RN will need to be called to [phone]. Original Note: Patient remains in ER . [facility] is in the process of obtaining insurance auth for patient. Still waiting to [facility] Level 2. Will need both of these before patient can transfer to facility. Continue to monitor for d/c needs.
[2023-02-21 11:56] VITALS: RESP 18
--- NOTE | 2023-02-21 12:04 | PC.NURSE ---
Patient is able to make needs known. Patient is able to ambulate around unit independently. Patient ate 100% of breakfast and lunch.Patient is watching TV in common area at this time.
--- NOTE | 2023-02-21 13:04 | PC.NURSE ---
Pt seen for individual OT intervention on this date. This proposal manager writer used therapeutic use of self to engage pt in conversation as a tool for managing anxiety. Pt was grateful to engage with this proposal manager writer, stating he was feeling nervous due to medical and mental health issues, positive results noted
[2023-02-21 14:56] VITALS: RESP 16
--- NOTE | 2023-02-21 15:26 | PC.NURSE ---
Patient will be discharged at 4pm to [facility]. nurse to nurse report called to [facility] at 3:25pm.
== END 2023-02-21 16:00 | disposition other institution (70) ==
PROVIDERS: Physician Assistant Medical; Emergency Provider Emergency Medicine; PCP Family Medicine
DX: F41.9 Anxiety disorder, unspecified (principal); Z11.52 Encounter for screening for COVID-19; S91.301D Unspecified open wound, right foot, subsequent encounter; X58.XXXD Exposure to other specified factors, subsequent encounter; E11.9 Type 2 diabetes mellitus without complications; Z89.431 Acquired absence of right foot; Z79.4 Long term (current) use of insulin; Z79.02 Long term (current) use of antithrombotics/antiplatelets; Z79.899 Other long term (current) drug therapy
CPT/HCPCS: 36415; 73630; 80053; 80143; 80179; 80307; 81003; 82947; 85025; 85652; 86140; 87635; 93005; 97161; 99285; S9485